=== PATIENT | female | born 1965 | race Caucasian/White ===

== ENCOUNTER → 2021-05-24 | Outpatient (CLI) | payer BC ==
--- NOTE | 2021-05-24 18:28 | CONS ---
CONSULTATION DATE OF SERVICE: 05/24/2021 This 55-year-old lady has been evaluated in [facility] for possible obstructive sleep apnea-hypopnea syndrome. HISTORY OF PRESENT ILLNESS/SLEEP-WAKE EVALUATION: Patient's usual sleep schedule on weekdays is from 10 p.m. to 7:30 a.m. and on weekends from 11 or 12 midnight until 8 a.m. Sometimes she has problems with falling asleep, although no TV in bedroom. She usually sleeps on the back position. She snores, has witnessed episodes by her of stopped breathing during sleep. She wakes up from sleep with gasping for air more than 5 times, and about 3 times with episodes of nocturia. Positive history of grinding teeth and sleeptalking. In the morning the patient wakes up tired, has problems with memory, concentration, depression, anxiety, falling asleep during the day. [place] Sleepiness Scale in very high range at 18. Sometimes she sees vivid dreams during her naps. No history of hypnagogic hallucinations, sleep paralysis or cataplexy. PAST MEDICAL HISTORY: Positive for allergies, asthma, anxiety, hypothyroidism, hyperlipidemia, acid reflux. PAST SURGICAL HISTORY: Surgery for nasal polyps, tonsillectomy, tarsal tunnel syndrome, bladder sling. MEDICATIONS: Flonase, venlafaxine 150 mg once a day, buspirone 30 mg twice a day, thyroid supplement, multivitamins, cetirizine, vitamin D3 supplement. SOCIAL HISTORY: Negative for smoking. Alcohol consumption occasional. FAMILY HISTORY: Positive for sleep apnea, cancer, lung problems. REVIEW OF SYSTEMS: Multiple awakenings from sleep, tiredness and sleepiness during the day. No fevers. No double vision. No recent chest pain. No shortness of breath. No abdominal pain. No bleeding episodes. No blood in the urine. No seizure episodes. PHYSICAL EXAMINATION: GENERAL: Pleasant lady without distress. VITAL SIGNS: BP 115/71, HR 84, RR 16, height 6 feet 8-1/2 inches, weight 190.6 pounds, body mass index 20.6, temperature 97.8, oxygen saturation at room air 96%. HEENT: PERRLA, EOMI, evaluation of oropharynx showed tongue protrudes midline. Low position of soft palate; Mallampati III. NECK: Supple, no JVD. Thyroid is not palpable. Neck measures 14-1/4 inches in circumference. LUNGS: Clear to percussion and to auscultation. Good air exchange. No wheezing or rhonchi. HEART: S1, S2 regular. No murmurs, gallops, or rubs. ABDOMEN: Soft and nontender. Bowel sounds are present. No organomegaly appreciated. EXTREMITIES: No clubbing or cyanosis. METAL SHAPING MACHINE OPERATOR: Awake, alert, and oriented X3. Cranial nerves 2 to 7 intact. There is no fasciculation or atrophy. noted. No focal deficits observed. IMPRESSION: 1. Snoring, witnessed episodes of stopped breathing during sleep, low position of soft palate, Mallampati III, significant excessive daytime sleepiness, [place] Sleepiness Scale of 18; obstructive sleep apnea-hypopnea syndrome. 2. Allergies. 3. Asthma. 4. Anxiety. 5. Hypothyroidism. 6. Hyperlipidemia. 7. History of nasal polyps. 8. Acid reflux. 9. Status post tonsillectomy. 10.Status post vein ligation in 2013. 11.TMJ surgery in 1995. 12.Status post bladder sling 2005. PLAN: 1. Polysomnography for evaluation of patient's breathing during sleep. 2. CPAP/BiPAP titration if sleep study confirms obstructive sleep apnea-hypopnea syndrome. 3. Preferable position during sleep on the side. 4. No driving if patient feels any sleepiness. 5. I will see patient for follow up visit to explain results of testing and following plan. Thank you very much for referring this patient for consultation. Sincerely, Harjit Rivera MD, PhD, FAASM Diplomat of [place] [employer] Sleep Medicine Board of [place] [employer] Budget Examiner of [facility] [place] MMODL / ZULMAN: [id number] /
== END ==
LOC: SLEEP 15:12
PROVIDERS: ATTEND Internal Medicine
DX: G47.33 Obstructive sleep apnea (adult) (pediatric) (principal); J45.909 Unspecified asthma, uncomplicated; F41.9 Anxiety disorder, unspecified; E03.9 Hypothyroidism, unspecified; E78.5 Hyperlipidemia, unspecified; K21.9 Gastro-esophageal reflux disease without esophagitis; Z90.09 Acquired absence of other part of head and neck; Z98.890 Other specified postprocedural states; T78.40XA Allergy, unspecified, initial encounter; Z87.09 Personal history of other diseases of the respiratory system; Z87.39 Personal history of other diseases of the musculoskeletal system and connective tissue
CPT/HCPCS: 99202

== ENCOUNTER → 2021-11-07 | Outpatient (CLI) | payer BC ==
--- NOTE | 2021-11-07 11:37 | P.PN ---
Subjective DATE: 11/07/2021 FOLLOW UP VISIT. Patient with obstructive sleep apnea hypopnea syndrome return to sleep center for follow-up visit. Recently patient had sleep study which documented obstructive sleep apnea hypopnea syndrome. Patient was initiated on PAP therapy and today is first visit after treatment was started. Patient was able to use PAP equipment every night for the whole night. The patient does not have significant problems with PAP pressure and humidification. She does has some discomfort during sure nostrils, she is using nasal pillow mask. Patient continued to feel some sleepiness during the day. [place] sleepiness scale is 19 today, which is in very high range. Before treatment it was in the range of 18.. I checked information from PAP unit. PAP unit pressure 5-10, average 6.5 cm H2O. Usage is 83 % for more then 4 hours, average 6.25 hours per night. Leak is 20.1 l/m, which is in acceptable range. Apnea Hypopnea Index is 1.8, which is normal. MEDICATIONS:1. Flonase 2. Venlafaxine 150 mg once a day 3. Buspirone 30 mg twice a day 4. Thyroid supplement During physical exam: GENERAL: A pleasant patient without any distress. VITAL SIGNS: BP 123/66, HR 72, RR 16, weight 189.4, temperature 96.7, oxygen saturation at room air 98%. HEENT: PERRLA, EOMI.low position of soft palate, Mallapati 3 . NECK: Supple. No JVD. LUNGS: Clear to percussion and to auscultation. Good air exchange. No wheezing or rhonchi. HEART: S1, S2 regular. ABDOMEN: Soft and nontender.[] EXTREMITIES: No clubbing or cyanosis. DOUBLE BACKER: Awake, alert, and oriented x3. No focal deficit. Impressions: 1. Obstructive sleep apnea-hypopnea syndrome in mild range. Patient demonstrated good compliance with treatment. 2. Patient continued to feel sleepiness while on treatment with CPAP. [place] Sleepiness Scale is in very high range of 19. Differential diagnosis would include hypersomnia. 3. ALLERGY. 4. Asthma. 5. Anxiety. 6. Hypothyroidism. 7. History of hyperlipidemia. 8. History of nasal polyps. 9. Acid reflux 10. Status post tonsillectomy 11. TMJ surgery in 1995. 12. Status post bladder sling in 2005. Plan: 1. Multiple sleep latency test for objective evaluation patient's symptoms of excessive daytime sleepiness, which should be done after the night on CPAP. 2. Continue using PAP equipment every night for the whole night. 3. PAP unit should stay lower then position of the head. 4. Advised patient to remove all remaining water from humidifier canister daily and make it dry after each usage. Refill canister with fresh distilled water before each usage. 5. Sleep hygiene with regular time in bed for at least 8 hours. 6. Precautions related to driving. No driving if feel any sleepiness. 7. I will maintain prescription for PAP supplies including mask, tube, filters. 8. Follow up visit after multiple sleep latency test. 9. Watching weight. Thank you very much for allowing me to participate in the management of your patient. Harjit Rivera MD, PhD, FAASM. Diplomat of [place] [employer], Sleep Medicine Board by [place] [employer] Print Color Operator of [facility] [place]
== END | disposition home or self-care (01) ==
LOC: SLEEP 10:39
PROVIDERS: ATTEND Internal Medicine
DX: G47.33 Obstructive sleep apnea (adult) (pediatric) (principal); Z99.89 Dependence on other enabling machines and devices; J45.909 Unspecified asthma, uncomplicated; F41.9 Anxiety disorder, unspecified; E03.9 Hypothyroidism, unspecified; Z79.890 Hormone replacement therapy; E78.5 Hyperlipidemia, unspecified; K21.9 Gastro-esophageal reflux disease without esophagitis; Z87.09 Personal history of other diseases of the respiratory system; Z90.89 Acquired absence of other organs; M26.609 Unspecified temporomandibular joint disorder, unspecified side

== ENCOUNTER → 2022-01-24 | Outpatient (CLI) | payer BC ==
--- NOTE | 2022-01-24 15:34 | P.PN ---
Subjective DATE: 01/24/2022 FOLLOW UP VISIT. Patient returned to sleep center for follow-up to discuss results of multiple sleep latency test and recommendations. Patient has history of mild obstructive sleep apnea hypopnea syndrome. She is using sure CPAP equipment every night but still continued to feel sleepiness during the day. We proceeded with CPAP titration night and following multiple sleep latency test. I discuss results of sleep study with patient in details. During titration patient respiration was on full control with the pressure 5 cm of water. Apnea-hypopnea index was 1.3 which totally normal. Multiple sleep latency test on the following day consisted from 5 naps, patient fell asleep on all naps sleep latency pathologically short only 4.1 minutes. No sleep onset REM periods have been documented although. Patient continued to feel sleepiness [place] Sleepiness Scale today increased to 16 . MEDICATIONS:1. Flonase 2. Venlafaxine 3. Buspirone 4. Thyroid supplement During physical exam: GENERAL: A pleasant patient without any distress. VITAL SIGNS: BP 123/83, HR 72, RR 15 , weight 193, temperature 97.9, oxygen saturation at room air 99% . HEENT: PERRLA, EOMI. NECK: Supple. No JVD. LUNGS: Clear to percussion and to auscultation. Good air exchange. No wheezing or rhonchi. HEART: S1, S2 regular. ABDOMEN: Soft and nontender. EXTREMITIES: No clubbing or cyanosis. HARDWARE INSTALLER: Awake, alert, and oriented x3. No focal deficit. Impressions: 1. Mild obstructive sleep apnea hypopnea syndrome, normal respiration on CPAP. 2. Multiple sleep latency test confirmed pathological sleepiness. Possibly narcolepsy type II differential diagnosis with idiopathic hypersomnia.. 3. Asthma. 4. History of anxiety. 5. ALLERGY. 6. Hypothyroidism. 7. History of hyperlipidemia. 8. History of nasal polyps. 9. Acid reflux. 10 status post tonsillectomy. 11. Status post TMJ surgery in 1995 12. Status post bladder sling in 2005 Plan: 1. Patient will be started on treatment with Adderall with lowest dose 5 mg in the morning and 5 mg around 1 PM. 2. Sleep hygiene with regular time in bed for at least 8 hours. 3. Daytime naps permitted 4. Precautions related to driving. No driving if feel any sleepiness. Patient is aware about civil and criminal liability for unsafe driving, promised to follow recommendations. 5. Follow up visit in 1 month or earlier if patient has any problems. Thank you very much for allowing me to participate in the management of your patient. Harjit Rivera MD, PhD, FAASM. Diplomat of [place] [employer], Sleep Medicine Board by [place] [employer] Section Repairer of [facility] [place]
== END ==
LOC: SLEEP 14:27
PROVIDERS: ATTEND Internal Medicine
DX: G47.33 Obstructive sleep apnea (adult) (pediatric) (principal); Z99.89 Dependence on other enabling machines and devices; E03.9 Hypothyroidism, unspecified; Z86.59 Personal history of other mental and behavioral disorders; J45.909 Unspecified asthma, uncomplicated; K21.9 Gastro-esophageal reflux disease without esophagitis; Z86.39 Personal history of other endocrine, nutritional and metabolic disease; Z87.09 Personal history of other diseases of the respiratory system; Z98.890 Other specified postprocedural states; Z90.89 Acquired absence of other organs; Z96.0 Presence of urogenital implants
CPT/HCPCS: 99212

== ENCOUNTER → 2022-10-24 | Outpatient (CLI) | payer BC ==
--- NOTE | 2022-10-24 16:52 | P.PN ---
Subjective DATE: 10/24/2022 FOLLOW UP VISIT. Patient with obstructive sleep apnea hypopnea syndrome and narcolepsy type II return to sleep center for follow-up visit. Information from previous visit have been reviewed. Patient is using PAP equipment most of the nights , getting PAP supplies in time. Some nights she travel with her and was not able to use CPAP equipment. The patient does not have significant problems with the mask, PAP unit and humidification. Previously patient tried to use Adderall up to 10 mg and modafinil, but on both medications she had side effects and was not able to use it .The [place] sleepiness scale is increased to 19. I checked information from PAP unit. PAP unit pressure 5-10, average 6.8 cm H2O. Usage is about 70 % for more then 4 hours, average 6 hours per night. Leak is 14.4 l/m, which is in acceptable range. Apnea Hypopnea Index is 1.6, which is normal. MEDICATIONS:1. Venlafaxine 225 mg once a day 2. Buspirone 60 mg once a day 3. JUNIOR HIGH SCHOOL TEACHER Thyroid 60 mg once a day 4. Colesevelam 625 mg once a day 5. Bactrim During physical exam: GENERAL: A pleasant patient without any distress. VITAL SIGNS: BP 113/75, HR 65, RR 16 , weight 195.8, temperature 98.0, oxygen saturation at room air 100 % . HEENT: PERRLA, EOMI.low position of soft palate, Mallapati 3 . NECK: Supple. No JVD. LUNGS: Clear to percussion and to auscultation. Good air exchange. No wheezing or rhonchi. HEART: S1, S2 regular. ABDOMEN: Soft and nontender.[] EXTREMITIES: No clubbing or cyanosis. HAND PLUG SHAPER: Awake, alert, and oriented x3. No focal deficit. Impressions: 1. Obstructive sleep apnea-hypopnea syndrome. Patient demonstrated borderline compliance with treatment, benefiting from treatment. 2. Narcolepsy type II, confirmed by multiple sleep latency test. Mean sleep latency 4.1 minutes, although no sleep onset REM periods. 3. ALLERGY. 4. Asthma. 5. History of anxiety. 6. Hypothyroidism. 7. Acid reflux. 8. History of hyperlipidemia. 9. Status post tonsillectomy. 10. Status post TMJ surgery. 11. Status post bladder sling in 2005. Plan: 1. Continue using PAP equipment every night for the whole night. 2. To change air filter at least 1-2 times per month. 3. We will try Ritalin with lowest dose 5 mg up to 2 times a day with the goal to prevent excessive daytime sleepiness. Patient will stop medication if any side effects. 4. Advised patient to remove all remaining water from humidifier canister daily and make it dry after each usage. Refill canister with fresh distilled water before each usage. 5. Sleep hygiene with regular time in bed for at least 8 hours. 6. Precautions related to driving. No driving if feel any sleepiness. 7. I will maintain prescription for PAP supplies including mask, tube, filters. 8. Follow up visit in 6 months or earlier if patient has any problems. 9. Watching weight. Thank you very much for allowing me to participate in the management of your patient. Harjit Rivera MD, PhD, FAASM. Diplomat of [place] [employer], Sleep Medicine Board by [place] [employer] Paleology Teacher of [facility] [place]
== END ==
LOC: 3 N SLEEP 16:10
PROVIDERS: ATTEND Internal Medicine
DX: G47.33 Obstructive sleep apnea (adult) (pediatric) (principal); G47.419 Narcolepsy without cataplexy; E03.9 Hypothyroidism, unspecified; F41.9 Anxiety disorder, unspecified; J45.909 Unspecified asthma, uncomplicated; E78.5 Hyperlipidemia, unspecified; T78.40XA Allergy, unspecified, initial encounter; K21.9 Gastro-esophageal reflux disease without esophagitis; Z98.890 Other specified postprocedural states; Z90.89 Acquired absence of other organs; Z79.890 Hormone replacement therapy; Z99.89 Dependence on other enabling machines and devices
CPT/HCPCS: 99212